=== PATIENT | female | born 1995 | race Two or more races ===

== ENCOUNTER → 2022-12-25 | Outpatient (CLI) | payer OTHER | END | disposition home or self-care (01) | LOC: PPH VACUNA 09:00 | PROVIDERS: ATTEND Emergency Medicine Pediatric Emergency Medicine | DX: Z23 Encounter for immunization (principal) ==

== ENCOUNTER 2023-11-15 10:16 | Emergency (ER) | payer OTHER ==
[~2023-11-15] VITALS: Ht 162.6 cm; Wt 61.2 kg
[2023-11-15] MEDS ORDERED: ELVITEG/COB/EMTRI/TENOFO DISOP 1 UDTAB TABLET PO ONE ×2 (11:00→11:08)
[2023-11-15] MEDS ORDERED: TETANUS & DIPHTHERIA TOX,ADULT 0.5 ML VIAL IM ONE (11:00)
[2023-11-15] MEDS ORDERED: TETANUS DIPHTHERIA TOX. ADSOR 5 ML VIAL IM ONE (11:08)
== END 2023-11-15 12:53 | disposition home or self-care (01) ==
LOC: ER 10:17
DX: S61.230A Puncture wound without foreign body of right index finger without damage to nail, initial encounter (principal); W46.1XXA Contact with contaminated hypodermic needle, initial encounter; Y93.89 Activity, other specified; Y92.230 Patient room in hospital as the place of occurrence of the external cause; Y99.9 Unspecified external cause status

== ENCOUNTER 2023-11-21 16:28 | Emergency (ER) | payer OTHER ==
[~2023-11-21] VITALS: Ht 162.6 cm; Wt 61.2 kg
[2023-11-21] MEDS ORDERED: TRAMADOL HCL 50 MG TABLET PO ONE (17:30)
[2023-11-21] MEDS ORDERED: ORPHENADRINE CITRATE 30 MG/ML AMPUL IM ONE (17:30)
[2023-11-21 18:34] LABS: ANION GAP 8 (10.0-20.0); BLOOD UREA NITROGEN 16 mg/dL (7-18); BUN CREA RATIO 19 (7.0-25.0); CALCIUM 9.5 mg/dL (8.5-10.1); CARBON DIOXIDE 29 mEq/L (21-32); CHLORIDE 108 mmol/L (98-107); CREATININE SERUM 0.84 mg/dL (0.55-1.02); GFR 81.33; GLUCOSE FASTING 96 mg/dL (65-100); OSMOLALITY SERUM 282 MOSM/KG (275-295); POTASSIUM 3.65 mEq/L (3.5-5.1); SODIUM 141 mmol/L (136-145)
[2023-11-21 18:35] LABS: HCG QUANTITATIVE < 1 mUI/mL (1-3)
[2023-11-21] MEDS ORDERED: CYCLOBENZAPRINE5 MG PO (21:19)
[2023-11-21] MEDS ORDERED: KETO10TA2 PO (21:19)
[2023-11-21] MEDS ORDERED: KETOROLAC TROMETHAMINE 60 MG VIAL IM STA (21:24)
== END 2023-11-21 22:03 | disposition home or self-care (01) ==
LOC: ER 16:30
PROVIDERS: General Practice
DX: M54.50 Low back pain, unspecified (principal); M54.2 Cervicalgia; V89.2XXA Person injured in unspecified motor-vehicle accident, traffic, initial encounter
CPT/HCPCS: 36415; 70450; 71250; 72125; 74177; Q9965